=== PATIENT | female | born 1935 | race Caucasian/White ===

== ENCOUNTER 2016-02-24 04:32 | Emergency (ER) | payer OTHER ==
[~2016-02-24] VITALS: Ht 144.8 cm; Wt 80.0 kg
[~2016-02-24 04:32] MED LIST: AMLODIPINE BESY10 MG PO; AMLODIPINE BESYL5 MG PO; ASPIRIN325 MG PO; BISAC-EVAC10 MG PR; CHILD ASPIRIN81 M1 PO; COLACE100 MG PO; DARVOCET-N 1001 EACH PO; DEXILANT60 MG PO; DIABETIC TUSSI118 ML PO; DIAPER RASH57 GM TP; DIOVAN HCT 1601 EACH PO; DULCOLAX10 MG PR; DUONEB 2.5-0.5 M3 ML IH; FENTANYL1 EAC1 TD; HYDRALAZINE HC100 MG PO; IRON325 M1 PO; IRON325 MG PO; LABETALOL HCL100 MG PO; LANTUS 10100 UNITS/ SC; LASIX40 MG PO; LEVAQUIN500 MG PO; LEVOTHYROXINE100 MCG PO; LIPITOR40 MG PO; LISINOPRIL10 MG PO; LISINOPRIL20 MG PO; LORATADINE10 M2 PO; LORCET 5-325 M1 EACH PO; LYRICA50 MG PO; MILK OF MAGNESI10 ML PO; MULTIPLE VITAM1 EACH PO; NOVOLOG 10100 UNITS/ SC; PHILLIPS'400 MG/5 M PO; PLAVIX75 MG PO; PRAVASTATIN SOD80 MG PO; PRENATAL S PO; PRILOSEC20 MG PO; PROMETHAZINE12.5 MG PR; PROTONIX40 MG PO; PROVENTIL HFA6.7 GM IH; REGLAN5 MG PO; SALINE NASAL SP45 ML BOTH NARES; SERTRALINE HCL50 MG PO; TRAZODONE HCL50 MG PO; TYLENOL 8 HOUR650 MG PO; TYLENOL REGULA325 MG PO; Tylenol Regular Stre PO; ZOFRAN4 MG PO; ZOFRAN8 MG PO; ZOLOFT100 MG PO
[2016-02-24 06:50] VITALS: BP 110/59
== END 2016-02-24 06:53 ==
LOC: EME → EDBD 04:32 → EME 06:53
DX: S00.83XA Contusion of other part of head, initial encounter (principal); R04.0 Epistaxis; M25.511 Pain in right shoulder; M25.551 Pain in right hip; W06.XXXA Fall from bed, initial encounter; Y92.122 Bedroom in nursing home as the place of occurrence of the external cause; I10 Essential (primary) hypertension; E03.9 Hypothyroidism, unspecified; J44.9 Chronic obstructive pulmonary disease, unspecified; J45.909 Unspecified asthma, uncomplicated; E11.9 Type 2 diabetes mellitus without complications; Z79.4 Long term (current) use of insulin; Z79.02 Long term (current) use of antithrombotics/antiplatelets; Z87.891 Personal history of nicotine dependence; Z95.0 Presence of cardiac pacemaker
CPT/HCPCS: 70450; 70486; 72125; 73030; 73502; 99281; 99284

== ENCOUNTER → 2016-05-11 | Outpatient (CLI) | payer OTHER | LOC: RAD 08:42 | DX: M19.011 Primary osteoarthritis, right shoulder (principal); M16.0 Bilateral primary osteoarthritis of hip; M51.36 Other intervertebral disc degeneration, lumbar region; K57.30 Diverticulosis of large intestine without perforation or abscess without bleeding | CPT/HCPCS: 72192; 73200 ==

== ENCOUNTER 2017-09-07 08:18 | Inpatient (IN) | payer OTHER ==
[~2017-09-07] VITALS: Ht 149.9 cm; Wt 69.0 kg
[~2017-09-07 08:18] MED LIST changes: -COLACE100 MG PO; +DOCU LIQUI50 MG/5 ML PO; +FEROSUL220 MG/51 PO; -IRON325 M1 PO; +LEVOTHYROXINE125 MCG PO
[2017-09-07 08:56] LABS: INTER. NORMALIZED RATIO 1.4
[2017-09-07 08:59] LABS: CHLORIDE 105 mEq/L (99-109); HEMATOCRIT 41.7 % (36.0-46.0); HEMOGLOBIN 12.4 G/DL (11.9-15.5); MCH 33.4 PG (29.0-34.0); MCHC 29.7 G/DL (30.0-36.0); NRBC (%) 0.2 /100 WBC (0-0); RBC DIS.WIDTH-CV 12.7 % (11.8-14.6); RBC DIS.WIDTH-SD 52.9 % (39-53); RED BLOOD COUNT 3.71 M/uL (3.80-5.20); SODIUM 150 mEq/L (136-147)
[2017-09-07 09:01] LABS: GLUCOSE 121 mg/dL (70-99)
[2017-09-07 09:04] LABS: GFR ESTIMATE (CALCULATED) 7 mL/min/; POTASSIUM 7.7 mEq/L (3.7-5.4)
[2017-09-07 09:05] LABS: MCV 112.4 FL (83-99); PLATELET COUNT 374 K/uL (156-360)
[2017-09-07 09:12] LABS: TROP-I INTERPRETATION NEGATIVE; TROPONIN-I 0.05 ng/mL (0.0-0.30)
[2017-09-07 09:17] LABS: APPEARANCE CLOUDY ((CLEAR)); BILIRUBIN NEGATIVE; BLOOD NEGATIVE; COLOR YELLOW ((YELLOW)); GLUCOSE (STRIP) NEGATIVE; KETONES NEGATIVE; LEUKOCYTES LARGE; NITRITE NEGATIVE; PROTEIN (STRIP) 100; SPECIFIC GRAVITY 1.011 (1.000-1.030); UROBILINOGEN 0.2 MG/DL (0.2-1.0)
[2017-09-07 09:22] LABS: UREA NITROGEN (BUN) 109 mg/dL (9-23)
[2017-09-07 09:24] LABS: CARBON DIOXIDE (BICARBONATE) < 5.0 mEq/L (20-31)
[2017-09-07 09:31] LABS: RED BLOOD CELLS NONE SEEN /HPF (0-5)
[2017-09-07 09:34] LABS: BACTERIA 4+ /HPF; EPITHELIAL CELLS 1+ /HPF; MUCUS NONE SEEN /LPF; UCUL ADDED? YES
[2017-09-07 09:35] LABS: AMORPHOUS URATES CRYSTALS 2+
[2017-09-07 10:56] LABS: SITE LR
[2017-09-07 10:58] LABS: DEVICE NC
[2017-09-07 10:59] LABS: CARBOXY HGB 1.9 % (0-5); METHEMOGLOBIN 1.4 % (0-1.5); PCO2 22 mm Hg (35-45); PO2 110 mm Hg (80-100); pH 6.67 (7.35-7.45)
[2017-09-07] MEDS ORDERED: ELIQUIS2.5 MG PO (11:28)
[2017-09-07] MEDS ORDERED: GLIPIZIDE5 MG PO (11:31)
[2017-09-07] MEDS ORDERED: KEPPRA100 MG/1 M PO ×2 (11:32→11:33)
[2017-09-07] MEDS ORDERED: LASIX20 MG PO (11:33)
[2017-09-07] MEDS ORDERED: METFORMIN HCL1000 MG PO (11:35)
[2017-09-07] MEDS ORDERED: TUMS500 MG PO (11:36)
[2017-09-07] MEDS ORDERED: VITAMIN D31000 UNI2 PO (11:37)
[2017-09-07] MEDS ORDERED: SILVADENE20 GM TP (11:42)
[2017-09-07 13:44] VITALS: BP 00/00
== END 2017-09-07 13:44 | DRG 871 ==
LOC: EME 08:18 → EDOF 10:19 → ENRESERV 10:39 → CANRESERV 10:39 → ENRESERV 12:13 → CANRESERV 13:36 → ENRESERV 13:36 → EDOF 13:44
PROVIDERS: Nurse Practitioner Family
DX: A41.9 Sepsis, unspecified organism (principal); N39.0 Urinary tract infection, site not specified; N17.0 Acute kidney failure with tubular necrosis; J18.9 Pneumonia, unspecified organism; J44.0 Chronic obstructive pulmonary disease with (acute) lower respiratory infection; E87.2 Acidosis; I95.9 Hypotension, unspecified; E87.5 Hyperkalemia; E83.52 Hypercalcemia; E86.0 Dehydration; I13.0 Hypertensive heart and chronic kidney disease with heart failure and stage 1 through stage 4 chronic kidney disease, or unspecified chronic kidney disease; I50.9 Heart failure, unspecified; E11.22 Type 2 diabetes mellitus with diabetic chronic kidney disease; N18.3 Chronic kidney disease, stage 3 (moderate); Z66 Do not resuscitate; I25.10 Atherosclerotic heart disease of native coronary artery without angina pectoris; I44.2 Atrioventricular block, complete; K21.9 Gastro-esophageal reflux disease without esophagitis; E03.9 Hypothyroidism, unspecified; I25.2 Old myocardial infarction; M19.90 Unspecified osteoarthritis, unspecified site; Z86.73 Personal history of transient ischemic attack (TIA), and cerebral infarction without residual deficits; Z87.891 Personal history of nicotine dependence; Z95.0 Presence of cardiac pacemaker; Z95.1 Presence of aortocoronary bypass graft; Z79.4 Long term (current) use of insulin; Z79.82 Long term (current) use of aspirin
CPT/HCPCS: 36600; 70450; 71045; 74176; 80048; 81003; 82948; 83605; 84484; 85027; 85610; 87040; 87077; 87086; 87186; 93005; 99281; 99285; J0295; J3370; J7050; J7070; J7120